=== PATIENT | female | born 1965 | race Caucasian/White ===

== ENCOUNTER 2016-07-23 06:22 | Day surgery (SDC) | payer OTHER ==
[~2016-07-23] VITALS: Ht 172.7 cm; Wt 70.3 kg
[2016-07-23 06:49] VITALS: BP 126/77
[2016-07-23 07:18] LABS: BASOPHIL % 0.4 % (0-2); RED CELL DISTRIBUTION WIDTH 12.8 % (11.5-14.5)
[2016-07-23 07:19] LABS: PLATELET COUNT 113 x10^3mcL (130-400)
[2016-07-23 07:33] LABS: CALCIUM 9.3 mg/dL (8.5-10.1); CARBON DIOXIDE 30.6 mmol/L (21-32); CHLORIDE SERUM 103 mmol/L (98-107); CREATININE SERUM 0.8 mg/dL (0.6-1.0); GFR1 > 60 mL/min; GLUCOSE SERUM 85 mg/dL (74-106); SODIUM SERUM 141 mmol/L (136-145)
[2016-07-23 10:19] VITALS: BP 123/86
== END 2016-07-23 09:50 | disposition home or self-care (01) ==
LOC: GI 06:22 → OR 07:30 → GI 09:50
PROVIDERS: Internal Medicine Gastroenterology
PROC: 0DJD8ZZ Inspection of Lower Intestinal Tract, Via Natural or Artificial Opening Endoscopic (ICD-10-PCS; principal; 2016-07-23 07:30)
DX: Z12.11 Encounter for screening for malignant neoplasm of colon (principal); K59.00 Constipation, unspecified; Z86.010 Personal history of colon polyps
CPT/HCPCS: 45378; Q0092